=== PATIENT | female | born 1955 | race Caucasian/White ===

== ENCOUNTER 2021-03-14 04:00 | Outpatient (CLI) | payer OTHER, SELFPAY ==
[2021-03-14 08:46] LABS: Hemoglobin A1C 7.3 % (<5.7)
[2021-03-14 09:32] LABS: TSH 1.82 uIU/mL (0.36-3.74)
== END 2021-03-14 04:01 | disposition home or self-care (01) ==
DX: E11.9 Type 2 diabetes mellitus without complications (principal); L65.9 Nonscarring hair loss, unspecified
CPT/HCPCS: 36415; 83036; 84443

== ENCOUNTER → 2022-05-21 02:36 | Outpatient (CLI) | payer MEDICARE, SELFPAY ==
--- NOTE | 2022-05-21 07:45 | DI.MAMMO_ITS ---
Exam(s) MAMMO SCREENING EXAM: MAMMO SCREENING CLINICAL HISTORY: screening,Z12.39 TECHNIQUE: Bilateral full field digital CC and MLO mammographic images were obtained with 3D tomosyn thesis and utilizing computer aided detection (CAD). COMPARISON: Available for comparison. FINDINGS: Masses/Architectural Distortion: There is an asymmetry in the upper right left breast on the MLO view which appears slightly more prominent compared to the prior examination. Microcalcifications: No suspicious pleomorphic-type are seen. Skin Thickening/Nipple Retraction: None. IMPRESSION: 1. Area of asymmetry in the upper left breast on the MLO view. 2. This area should be further evaluated with a spot compression view. Ultrasound may be indicated at that time. BI-RADS Category 0 - Assessment Incomplete: Need additional imaging evaluation Breast Density - Category B - Scattered areas of fibroglandular density Breast density category C or D implies that the patient has dense breast tissue. Dense breast tissue is very common and is not abnormal but dense breast tissue can make it harder to find cancer on a ma mmogram. Also, dense breast tissue may increase their breast cancer risk. This information about the result of the mammogram report was provided to the patient to raise their awareness. Use this report when you speak with the patient about their risks for breast cancer, which includes their family hist ory. At that time, you may recommend for more screening tests (Ultrasound or MRI) as they might be us eful based on their risk. A negative radiographic report should not delay biopsy if a dominant or clinically suspicious mass is present. Up to ten percent of cancers are not identified on mammography. A negative report may reinforce clinical impression. Adenosis and dense breasts may obscure an underlying neoplasm. False positive reports average 6 to 10%. Patient will receive a letter notifying them of these results.
== END ==
PROVIDERS: PCP Student in an Organized Health Care Education/Training Program; Visit Provider Student in an Organized Health Care Education/Training Program
DX: Z12.31 Encounter for screening mammogram for malignant neoplasm of breast (principal); R92.8 Other abnormal and inconclusive findings on diagnostic imaging of breast
CPT/HCPCS: 77063; 77067

== ENCOUNTER → 2022-06-05 02:05 | Outpatient (CLI) | payer MEDICARE, SELFPAY ==
--- NOTE | 2022-06-05 | DI.MAMMO_ITS ---
Exam(s) MG MAMMO SCREEN CALL BACK UNI US BREAST LT COMPLETE EXAM: MG MAMMO SCREEN CALL BACK UNI -LEFT AND COMPLETE LEFT BREAST ULTRASOUND CLINICAL HISTORY: F/U MAMMO, ASYMMETRY LT BREAST. TECHNIQUE: Unilateral spot mammographic images obtained with 3D tomosynthesisand utilizing computer aided detection (CAD). . Complete LEFT breast Ultrasound was also performed, including all 4 quadrants, the retroareolar regio n, and the ipsilateral axilla. COMPARISON: Prior mammograms were reviewed. This additional imaging was performed due to findings described on the recent screening mammogram of 05/21/2022. FINDINGS: DIAGNOSTIC MAMMOGRAM: Additional mammographic views performed todayrender this area less concerning and similar in appearan ce to prior mammograms.. COMPLETE LEFT BREAST ULTRASOUND: Ultrasound performed today reveals no significant findings in all 4 quadrants.. Retroareolar region is also negative Scanning of the ipsilateral axilla reveals no significant adenopathy. IMPRESSION: 1. No radiographic evidence of malignancy in the left breast. 2. Negative complete left breast ultrasound Appropriate follow-up is to keep this patient on her yearly mammogram schedule, earlier imaging if a self detected breast change is noted.. The patient was informed of these findings and recommendations prior to leaving the department today. BI-RADS Category 2 - Benign Findings Breast Density - Category B - Scattered areas of fibroglandular density Breast density Category C or D implies that the patient has dense breast tissue. Dense breast tissue can make it harder to find cancer on a mammogram. Dense breast tissue is also associated with an incr eased risk of breast cancer. This information about the result of the mammogram report was provided to the patient to raise their awareness. Use this report when you speak with the patient about their risks for breast cancer, which includes their family history. At that time, you may recommend additional screening tests (Ultrasoun d or MRI) as these tests may add significant information. A negative radiographic report should not delay biopsy if a dominant or clinically suspicious mass is present. Up to ten percent of cancers are not identified on mammography. A negative report may reinforce clinical impression. Adenosis and dense breasts may obscure an underlying neoplasm. False positive reports average 6 to 10%. Patient will receive a letter notifying them of these results.
== END ==
PROVIDERS: PCP Family Medicine; Visit Provider Student in an Organized Health Care Education/Training Program
DX: R92.8 Other abnormal and inconclusive findings on diagnostic imaging of breast (principal); Z12.31 Encounter for screening mammogram for malignant neoplasm of breast
CPT/HCPCS: 76642; 77063; 77067

== ENCOUNTER 2022-08-10 01:34 | Outpatient (CLI) | payer MEDICARE, SELFPAY ==
[2022-08-10 08:23] LABS: HCT 39.6 % (36.0-46.0); HGB 12.4 g/dL (11.2-15.7); MCH 27.2 pg (27.0-33.0); MCHC 31.3 % (32.0-36.0); MCV 87 fL (80-95); MPV 9.5 fL (8.0-11.0); Platelet Count 400 10^3/uL (130-400); RBC 4.56 10^6/uL (3.93-5.22); RDW 12.4 % (11.7-14.6); RDW-SD 39.6 fL; WBC 15.22 10^3/uL (4.4-10.8)
[2022-08-10 08:43] LABS: Hemoglobin A1C 6.9 % (<5.7)
[2022-08-10 09:40] LABS: ALT 25 U/L (14-59); AST 14 U/L (15-37); Albumin 3.9 g/dL (3.4-5.0); Alkaline Phosphatase 77 U/L (46-116); Anion Gap 8.5 mmol/L (3-11); BUN 10 mg/dL (7-18); Bilirubin, Total 0.3 mg/dL (0.2-1.0); CO2 29.5 mmol/L (21.0-32.0); CREATININE 0.8 mg/dL (0.55-1.02); Calcium 11.3 mg/dL (8.5-10.1); Chloride 101 mmol/L (98-107); Estimated GFR 79.71 (mL/min/1.73m2); Glucose 119 mg/dL (74-106); Potassium 4.2 mmol/L (3.5-5.1); Sodium 139 mmol/L (136-145); TSH (W/Ref FT4) 1.99 uIU/mL (0.36-3.74); Total Protein 7.7 g/dL (6.4-8.2)
== END 2022-08-10 01:35 | disposition home or self-care (01) ==
PROVIDERS: PCP Family Medicine; Visit Provider Family Medicine
DX: E11.9 Type 2 diabetes mellitus without complications (principal); R53.83 Other fatigue
CPT/HCPCS: 36415; 80053; 85027; 83036; 84443

== ENCOUNTER 2022-08-29 09:45 | Outpatient (CLI) | payer MEDICARE, SELFPAY ==
--- NOTE | 2022-08-29 | DI.RAD_ITS ---
Exam(s) XR CHEST 2V PA LATERAL EXAM: XR CHEST 2V PA LATERAL CLINICAL HISTORY: WHEEZING R06.02 COUGH R05.8 TECHNIQUE: 2D digital imaging was performed of the chest. Two images were obtained. PA and lateral views were obtained. COMPARISON: No exams were available for comparison FINDINGS: MEDIASTINUM: Normal. HEART: Normal. PULMONARY VASCULATURE: Normal. LUNGS: Clear. PLEURAL SPACE: No pleural effusion or pneumothorax. BONE:Within normal limits for the patient's age. OTHER FINDINGS:Normal. IMPRESSION: No acute pulmonary findings. DATA REPOSITORY: RADIATION DOSE DELIVERED:
== END 2022-08-29 10:05 ==
LOC: DI 09:47
PROVIDERS: PCP Family Medicine; Visit Provider Family Medicine
DX: R06.2 Wheezing (principal); R05.8 Other specified cough
CPT/HCPCS: 71046

== ENCOUNTER 2022-08-29 13:06 | Outpatient (REF) | payer MEDICARE, SELFPAY | END 2022-08-29 13:07 | disposition home or self-care (01) | LOC: NCHCN 13:06 | PROVIDERS: PCP Family Medicine; Visit Provider Family Medicine | DX: R05.8 Other specified cough (principal); R06.2 Wheezing; J06.9 Acute upper respiratory infection, unspecified | CPT/HCPCS: 87070; 87205 ==

== ENCOUNTER 2022-10-15 04:00 | Outpatient (CLI) | payer MEDICARE, SELFPAY ==
[2022-10-15] MEDS: Albuterol HFA 18 GM 200 PUFF INH IH (14:55)
[2022-10-15] MEDS: Inhaler, Assist Device 1 EACH MC (14:55)
--- NOTE | 2022-10-16 11:00 | W.PFT ---
Date of service: 10/15/22 Time of Service: 13:12 Pulmonary Function Test Result Indications: Coughing Interpretation Spirometry: There is no airflow limitation. There is no significant bronchodilator response. Lung Volumes: Normal lung volumes Diffusion Capacity: Normal diffusion Airway Pressure: Normal airways resistance Impression Normal pulmonary function testing. Clinical Correlation therefore is recommended.
== END 2022-10-15 04:01 | disposition home or self-care (01) ==
LOC: RT 04:01
PROVIDERS: PCP Family Medicine; Visit Provider Family Medicine
DX: R05.8 Other specified cough (principal)
CPT/HCPCS: 94060; 94726; 94729

== ENCOUNTER 2022-11-01 02:15 | Outpatient (CLI) | payer MEDICARE, SELFPAY ==
--- NOTE | 2022-11-01 10:00 | DI.DEXA_ITS ---
Exam(s) XR DEXA BONE DENSITY W/WO NEO EXAM: XR DEXA BONE DENSITY W/WO NEO CLINICAL HISTORY: ASYMPTOMATIC POSTMENOPAUSAL STATUS, Z78.0 TECHNIQUE: COMPARISON: No exams were available for comparison FINDINGS: Lateral Spine Image: Unremarkable. No compression deformities identified. Left hip: Total T-Score: -1.9. Total Z-Score: -0.5 T- and Z-scores: The findings are consistent with osteopenia. There is osteoporosis in the femoral n juice with a T-score of -2.5. Lumbar Spine: Total T-Score: -0.4. Total Z-Score: 1.6 T- and Z-scores: Within normal limits. There is osteopenia in the lumbar spine. No evidence of osteo porosis. IMPRESSION: Osteoporosis in the left femoral neck.
== END 2022-11-01 02:35 ==
LOC: DI 02:15
PROVIDERS: PCP Family Medicine; Visit Provider Family Medicine
DX: Z78.0 Asymptomatic menopausal state (principal); M81.0 Age-related osteoporosis without current pathological fracture
CPT/HCPCS: 77080

== ENCOUNTER 2022-11-22 14:09 | Outpatient (REF) | payer MEDICARE, SELFPAY ==
[2022-11-22 21:38] LABS: COMMENT (LAB VIEW ONLY) 16.12 mg/dL; Microalb ug/mg Crea 14.3 ug/mg Cr
== END 2022-11-22 14:10 | disposition home or self-care (01) ==
LOC: NCHCN 14:09
PROVIDERS: PCP Family Medicine; Visit Provider Family Medicine
DX: E11.9 Type 2 diabetes mellitus without complications (principal)
CPT/HCPCS: 82043; 82570

== ENCOUNTER 2023-07-08 18:33 | Outpatient (REF) | payer MEDICARE, SELFPAY ==
[2023-07-08 14:55] LABS: HCT 37.8 % (36.0-46.0); HGB 11.4 g/dL (11.2-15.7); MCH 23.3 pg (27.0-33.0); MCHC 30.2 % (32.0-36.0); MCV 77 fL (80-95); MPV 9.9 fL (8.0-11.0); Platelet Count 415 10^3/uL (130-400); RDW 18.3 % (11.7-14.6); RDW-SD 51.4 fL
[2023-07-08 15:37] LABS: ALT 31 U/L (14-59); AST 18 U/L (15-37); Alkaline Phosphatase 55 U/L (46-116); Anion Gap 12.1 mmol/L (3-11); BUN 11 mg/dL (7-18); Bilirubin, Total 0.4 mg/dL (0.2-1.0); CO2 24.9 mmol/L (21.0-32.0); CREATININE 0.7 mg/dL (0.55-1.02); Calcium 10.7 mg/dL (8.5-10.1); Chloride 100 mmol/L (98-107); Estimated GFR 92.98 (mL/min/1.73m2); Glucose 149 mg/dL (74-106); Potassium 4.6 mmol/L (3.5-5.1); Sodium 137 mmol/L (136-145); Total Protein 7.4 g/dL (6.4-8.2)
[2023-07-08 15:40] LABS: Hemoglobin A1C 6.8 % (<5.7)
== END 2023-07-08 18:34 | disposition home or self-care (01) ==
LOC: NCHCN 18:33
PROVIDERS: PCP Family Medicine; Visit Provider Nurse Practitioner Family
DX: E78.5 Hyperlipidemia, unspecified (principal); E11.9 Type 2 diabetes mellitus without complications
CPT/HCPCS: 80053; 85027; 83036

== ENCOUNTER 2023-07-16 15:07 | Outpatient (REF) | payer MEDICARE, SELFPAY ==
[2023-07-16 21:27] LABS: Abs Immature Grans 0.06 10^3/uL (0.0-0.06); Absolute Basophil Count 0.09 10^3/uL (0.0-0.2); Absolute Eosinophil Count 0.21 10^3/uL (0.0-0.7); Absolute Monocyte Count 1.26 10^3/uL (0.1-0.8); Basophils % 0.6; Eosinophils % 1.4; HCT 37.5 % (36.0-46.0); HGB 11.5 g/dL (11.2-15.7); Immature Grans % 0.4; Lymphocytes % 18.5; MCH 23.9 pg (27.0-33.0); MCHC 30.7 % (32.0-36.0); MCV 78 fL (80-95); MPV 10.3 fL (8.0-11.0); Monocytes % 8.3; Neutrophils % 70.8; Platelet Count 412 10^3/uL (130-400); RBC 4.82 10^6/uL (3.93-5.22); RDW 17.5 % (11.7-14.6); RDW-SD 49.7 fL; WBC 15.17 10^3/uL (4.4-10.8)
[2023-07-16 21:28] LABS: Absolute Lymphocyte Count 2.81 10^3/uL (1.2-3.4); Absolute Neutrophil Count 10.74 10^3/uL (1.2-6.7)
[2023-07-17 13:53] LABS: Iron 27 ug/dL (50-170); Total Iron Binding Capacity 418 ug/dL (250-450); Transferrin Sat 6 % (15-50)
[2023-07-23 10:12] LABS: Folate 13.4 ng/mL (See Note)
== END 2023-07-16 15:08 | disposition home or self-care (01) ==
LOC: NCHCN 15:07
PROVIDERS: PCP Family Medicine; Visit Provider Family Medicine
DX: R53.83 Other fatigue (principal)
CPT/HCPCS: 82746; 83540; 83550; 85025

== ENCOUNTER 2023-08-12 14:13 | Outpatient (REF) | payer MEDICARE, SELFPAY ==
[2023-08-12 14:52] LABS: Abs Immature Grans 0.07 10^3/uL (0.0-0.06); Absolute Basophil Count 0.06 10^3/uL (0.0-0.2); Absolute Eosinophil Count 0.16 10^3/uL (0.0-0.7); Absolute Lymphocyte Count 2.19 10^3/uL (1.2-3.4); Absolute Monocyte Count 0.68 10^3/uL (0.1-0.8); Absolute Neutrophil Count 7.21 10^3/uL (1.2-6.7); Basophils % 0.6; Eosinophils % 1.5; HGB 11.7 g/dL (11.2-15.7); Immature Grans % 0.7; Lymphocytes % 21.1; MCH 23.9 pg (27.0-33.0); MCHC 30.8 % (32.0-36.0); MCV 78 fL (80-95); MPV 9.5 fL (8.0-11.0); Monocytes % 6.6; Neutrophils % 69.5; Platelet Count 427 10^3/uL (130-400); RDW 17.1 % (11.7-14.6); RDW-SD 48.2 fL; WBC 10.37 10^3/uL (4.4-10.8)
[2023-08-12 15:20] LABS: Iron 32 ug/dL (50-170); Total Iron Binding Capacity 374 ug/dL (250-450); Transferrin Sat 9 % (15-50)
[2023-08-12 15:24] LABS: Folate 17.8 ng/mL (8.6-20.0)
== END 2023-08-12 14:14 | disposition home or self-care (01) ==
LOC: NCHCN 14:13
PROVIDERS: PCP Family Medicine; Visit Provider Family Medicine
DX: D50.9 Iron deficiency anemia, unspecified (principal)
CPT/HCPCS: 82746; 83540; 83550; 85025

== ENCOUNTER → 2023-09-05 04:32 | Outpatient (CLI) | payer MEDICARE, SELFPAY ==
--- NOTE | 2023-09-05 | DI.CT_ITS ---
Exam(s) CT CHEST WO EXAM: CT CHEST WO CLINICAL HISTORY: ABNL BREATH SOUNDS,R09.89,RHONCHI RLL,COUGH,FEVER,PERSIST LEUKOCYTOSIS. TECHNIQUE: Imaging protocol: Axial computed tomography images were obtained and coronal and sagittal reformatted images were created and reviewed. COMPARISON: CR XR CHEST 2V PA LATERAL from 08/29/2022 FINDINGS: Tracheobronchial tree: Patent where visualized. No bronchiectasis or bronchial wall thickening. Pulmonary parenchyma: No consolidation or dominant measurable mass. No architectural distortion. Ther e is a 3.6 mm nodule in the periphery of the left lower lobe (series 3, image 363). Mediastinum and Krystina: No dominant adenopathy or fluid collection. The esophagus is unremarkable. Thyroid gland: Unremarkable. Pleura: No effusion or pneumothorax. Heart: The heart is not dilated. Coronary artery calcifications are present. No pericardial effusion . Aorta: Thoracic aorta non-dilated. Atherosclerotic calcification is present. Upper abdomen: Cholelithiasis. No biliary ductal dilatation. There is a cyst on the left kidney. It is incompletely imaged. Renal ultrasound may be obtained for further evaluation. It measures at least 3.9 x 5.3 cm. Lymph nodes: Within normal limits. Soft tissues: Unremarkable. Bones:Within normal limits for the patient's age. IMPRESSION: 1. No focal infiltrates. 2. 3.6 cm left lower lobe pulmonary nodule. Single solid noncalcified nodules. ???Solid nodules smaller than 6 mm (those 5 mm or smaller) do not require routine follow-up in patients at low risk (grade 1C; strong recommendation, low- or very-low- quality evidence). (Aguilar et al., 2017) Solid nodules smaller than 6 mm do not require routine follow-up in all patients with high clinical r isk; however, some nodules smaller than 6 mm with suspicious morphology, upper lobe location, or both may warrant follow-up at 12 months (grade 2A; weak recommendation, high-quality evidence). (Aguilar et al., 2017) 3. Cholelithiasis. Unexpected findings RADIATION DOSE DELIVERED: Total DLP Total DLP DATA REPOSITORY: All CT scans at this facility are submitted to the National Radiology Data Registry (NRDR) Dose Index Registry (DIR) with the [employer] ([employer]). RADIATION OPTIMIZATION: All CT scans at this facility use at least one of these dose optimization te chniques: automated exposure control; mA and/or kV adjustment per patient size (includes targeted exa ms where dose is matched to clinical indication); or iterative reconstruction.
== END ==
PROVIDERS: PCP Family Medicine; Visit Provider Family Medicine
DX: R05.8 Other specified cough (principal); R09.89 Other specified symptoms and signs involving the circulatory and respiratory systems; R06.89 Other abnormalities of breathing; R50.9 Fever, unspecified; R91.1 Solitary pulmonary nodule
CPT/HCPCS: 71250

== ENCOUNTER → 2023-09-17 03:56 | Outpatient (CLI) | payer MEDICARE, SELFPAY ==
--- NOTE | 2023-09-17 12:20 | DI.US_ITS ---
Exam(s) US RENAL EXAM: US RENAL CLINICAL HISTORY: N28.1 Cyst of kidney, acquired, f/u cyst partially seen on CT. TECHNIQUE: Lewis scale, color and spectral Doppler were used. COMPARISON: CT CT CHEST WO from 09/05/2023 FINDINGS: Renal size in cm: Right: 10.1 left: 11.3 Echogenicity: Normal Hydronephrosis: No Cyst or mass: 6.3 x 2.8 x 6.5 centimeters simple cyst emanating from the upper pole of the left kidne y. Nephrolithiasis: No Bladder:Normal. Prevoid vol: 196 cc Postvoid vol: Not performed IMPRESSION: 6.5 centimeter simple cyst of the left kidney. No follow-up recommended. DATA REPOSITORY:
== END ==
PROVIDERS: PCP Family Medicine; Visit Provider Family Medicine
DX: N28.1 Cyst of kidney, acquired (principal)
CPT/HCPCS: 76770

== ENCOUNTER 2023-10-22 15:18 | Outpatient (REF) | payer MEDICARE, SELFPAY ==
[2023-10-22 15:03] LABS: Abs Immature Grans 0.04 10^3/uL (0.0-0.06); Absolute Basophil Count 0.04 10^3/uL (0.0-0.2); Absolute Eosinophil Count 0.15 10^3/uL (0.0-0.7); Absolute Lymphocyte Count 1.96 10^3/uL (1.2-3.4); Absolute Monocyte Count 0.72 10^3/uL (0.1-0.8); Absolute Neutrophil Count 6.06 10^3/uL (1.2-6.7); Basophils % 0.4 %; Eosinophils % 1.7 %; HCT 39.4 % (36.0-46.0); HGB 12.6 g/dL (11.2-15.7); Immature Grans % 0.4 %; Lymphocytes % 21.9 %; MCH 27.3 pg (27.0-33.0); MCV 86 fL (80-95); MPV 10.1 fL (8.0-11.0); Neutrophils % 67.6 %; Platelet Count 337 10^3/uL (130-400); RBC 4.61 10^6/uL (3.93-5.22); RDW 17.1 % (11.7-14.6); RDW-SD 52.9 fL; WBC 8.97 10^3/uL (4.4-10.8)
[2023-10-22 15:15] LABS: Iron 72 ug/dL (50-170); Total Iron Binding Capacity 318 ug/dL (250-450); Transferrin Sat 23 % (15-50)
[2023-10-22 15:28] LABS: ALT 41 U/L (14-59); AST 22 U/L (15-37); Alkaline Phosphatase 55 U/L (46-116); Anion Gap 9.8 mmol/L (3-11); BUN 14 mg/dL (7-18); Bilirubin, Total 0.4 mg/dL (0.2-1.0); CO2 28.2 mmol/L (21.0-32.0); CREATININE 0.5 mg/dL (0.55-1.02); Calcium 10.2 mg/dL (8.5-10.1); Chloride 97 mmol/L (98-107); Estimated GFR 100.84 (mL/min/1.73m2); Ferritin 17 ng/mL (8-252); Glucose 109 mg/dL (74-106); Potassium 4.8 mmol/L (3.5-5.1); Sodium 135 mmol/L (136-145); Total Protein 6.9 g/dL (6.4-8.2)
[2023-10-22 15:38] LABS: Vitamin D 25 Total 50.5 ng/mL (30-100)
[2023-10-22 15:43] LABS: Hemoglobin A1C 6.8 % (<5.7)
== END 2023-10-22 15:19 | disposition home or self-care (01) ==
LOC: NCHCN 15:18
PROVIDERS: PCP Family Medicine; Visit Provider Family Medicine
DX: E11.9 Type 2 diabetes mellitus without complications (principal); E83.52 Hypercalcemia
CPT/HCPCS: 80053; 82306; 82728; 83036; 83540; 83550; 85025

== ENCOUNTER → 2023-10-28 09:49 | Outpatient (BNVA) | payer MEDICARE, SELFPAY | PROVIDERS: PCP Family Medicine; Referring Provider Family Medicine; Visit Provider Student in an Organized Health Care Education/Training Program | DX: M72.0 Palmar fascial fibromatosis [Dupuytren] (principal); M65.332 Trigger finger, left middle finger | CPT/HCPCS: 99213 ==

== ENCOUNTER → 2024-01-06 01:24 | Outpatient (CLI) | payer MEDICARE, SELFPAY ==
--- NOTE | 2024-01-06 07:15 | DI.RAD_ITS ---
Exam(s) XR FOOT RT COMPLETE EXAM: XR FOOT RT COMPLETE CLINICAL HISTORY: Right 3rd toe pain,PAIN RT FOOT, M79.674,M79.671. TECHNIQUE: 2D digital imaging was performed. Three views. COMPARISON: No exams were available for comparison FINDINGS: BONES: No acute fracture is present. No bony destructive lesion is seen. Small enthesophyte at Achil les insertion on calcaneus. JOINTS: No dislocation present. No significant joint space narrowing. SOFT TISSUE: Normal. IMPRESSION: No acute abnormality. DATA REPOSITORY: RADIATION DOSE DELIVERED:
== END ==
PROVIDERS: PCP Family Medicine; Visit Provider Podiatrist
DX: M79.674 Pain in right toe(s) (principal); M79.671 Pain in right foot; M76.61 Achilles tendinitis, right leg
CPT/HCPCS: 73630

== ENCOUNTER 2024-02-20 16:38 | Outpatient (REF) | payer MEDICARE, SELFPAY ==
[2024-02-20 21:46] LABS: Iron 69 ug/dL (50-170); Total Iron Binding Capacity 329 ug/dL (250-450); Transferrin Sat 21 % (15-50)
[2024-02-20 21:47] LABS: Abs Immature Grans 0.03 10^3/uL (0.0-0.06); Absolute Basophil Count 0.08 10^3/uL (0.0-0.2); Absolute Monocyte Count 0.76 10^3/uL (0.1-0.8); Absolute Neutrophil Count 6.76 10^3/uL (1.2-6.7); Basophils % 0.8 %; HCT 44.6 % (36.0-46.0); HGB 14.4 g/dL (11.2-15.7); Immature Grans % 0.3 %; Lymphocytes % 20.1 %; MCH 29.4 pg (27.0-33.0); MCHC 32.3 % (32.0-36.0); MCV 91 fL (80-95); MPV 9.9 fL (8.0-11.0); Monocytes % 7.7 %; Neutrophils % 68.1 %; Platelet Count 360 10^3/uL (130-400); RDW 12.6 % (11.7-14.6); RDW-SD 42.1 fL; WBC 9.93 10^3/uL (4.4-10.8)
[2024-02-20 22:00] LABS: Anion Gap 7.1 mmol/L (3-11); BUN 12 mg/dL (7-18); CO2 28.9 mmol/L (21.0-32.0); CREATININE 0.6 mg/dL (0.55-1.02); Calcium 10.5 mg/dL (8.5-10.1); Chloride 101 mmol/L (98-107); Ferritin 63 ng/mL (8-252); Glucose 92 mg/dL (74-106); Potassium 5.2 mmol/L (3.5-5.1); Sodium 137 mmol/L (136-145)
[2024-02-20 22:34] LABS: Hemoglobin A1C 6.1 % (<5.7)
== END 2024-02-20 16:39 | disposition home or self-care (01) ==
LOC: NCHCN 16:38
PROVIDERS: PCP Family Medicine; Visit Provider Family Medicine
DX: E61.1 Iron deficiency (principal)
CPT/HCPCS: 80048; 82728; 83036; 83540; 83550; 85025

== ENCOUNTER 2024-03-12 15:39 | Outpatient (REF) | payer MEDICARE, SELFPAY ==
[2024-03-12 15:49] LABS: ALT 38 U/L (14-59); AST 22 U/L (15-37); Albumin 3.8 g/dL (3.4-5.0); Alkaline Phosphatase 79 U/L (46-116); BUN 14 mg/dL (7-18); Bilirubin, Total 0.47 mg/dL (0.2-1.0); CREATININE 0.7 mg/dL (0.55-1.02); Chloride 100 mmol/L (98-107); Estimated GFR 92.98 (mL/min/1.73m2); Glucose 211 mg/dL (74-106); Potassium 4.4 mmol/L (3.5-5.1); Sodium 135 mmol/L (136-145); Total Protein 6.7 g/dL (6.4-8.2); Vitamin D 25 Total 42.4 ng/mL (30-100)
[2024-03-12 16:12] LABS: PHOSPHORUS 3.7 mg/dL (2.6-4.7)
[2024-03-12 22:31] LABS: Parathyroid Hormone,Intact 51 pg/mL (19-88)
== END 2024-03-12 15:40 | disposition home or self-care (01) ==
LOC: NCHCN 15:39
PROVIDERS: PCP Family Medicine; Visit Provider Family Medicine
DX: E83.52 Hypercalcemia (principal)
CPT/HCPCS: 80053; 82306; 82330; 83970; 84100

== ENCOUNTER 2024-06-16 17:45 | Outpatient (REF) | payer MEDICARE, SELFPAY ==
[2024-06-16 15:48] LABS: HCT 43.8 % (36.0-46.0); HGB 14.3 g/dL (11.2-15.7); MCH 29.4 pg (27.0-33.0); MCHC 32.6 % (32.0-36.0); MCV 90 fL (80-95); MPV 9.9 fL (8.0-11.0); Platelet Count 340 10^3/uL (130-400); RBC 4.87 10^6/uL (3.93-5.22); RDW 12.4 % (11.7-14.6); RDW-SD 40.6 fL; WBC 8.67 10^3/uL (4.4-10.8)
[2024-06-16 16:10] LABS: Hemoglobin A1C 6.5 % (<5.7)
[2024-06-16 16:12] LABS: Anion Gap 6.3 mmol/L (3-11); BUN 13 mg/dL (7-18); CO2 31.7 mmol/L (21.0-32.0); CREATININE 1.2 mg/dL (0.55-1.02); Calcium 10.9 mg/dL (8.5-10.1); Chloride 102 mmol/L (98-107); Estimated GFR 48.39 (mL/min/1.73m2); Ferritin 54 ng/mL (8-252); Glucose 118 mg/dL (74-106); Potassium 4.1 mmol/L (3.5-5.1); Sodium 140 mmol/L (136-145)
[2024-06-16 16:34] LABS: Iron 115 ug/dL (50-170); Total Iron Binding Capacity 320 ug/dL (250-450); Transferrin Sat 36 % (15-50)
== END 2024-06-16 17:46 | disposition home or self-care (01) ==
LOC: NCHCN 17:45
PROVIDERS: PCP Family Medicine; Visit Provider Family Medicine
DX: E11.9 Type 2 diabetes mellitus without complications
CPT/HCPCS: 80048; 85027; 82728; 83036; 83540; 83550

== ENCOUNTER 2024-06-19 01:04 | Outpatient (CLI) | payer MEDICARE, SELFPAY ==
[2024-06-19 16:27] LABS: TSH (W/Ref FT4) 0.86 uIU/mL (0.36-3.74); Vitamin D 25 Total 38.5 ng/mL (30-100)
[2024-06-19 22:07] LABS: Ionized Calcium 1.29 mmol/L (1.14-1.35)
[2024-06-22 13:43] LABS: Albumin 60.9 % (55.8-66.1); Albumin g/dL 4.4 g/dL (3.6-5.2); Total Protein 7.3 g/dL (6.3-8.2)
[2024-06-23 14:56] LABS: PTH-Related Peptide <0.5 pmol/L (< or = 4.2)
== END 2024-06-19 01:05 | disposition home or self-care (01) ==
PROVIDERS: PCP Family Medicine; Visit Provider Family Medicine
DX: E83.52 Hypercalcemia (principal)
CPT/HCPCS: 36415; 82306; 82330; 82397; 84165; 84443

== ENCOUNTER 2024-09-18 11:42 | Outpatient (REF) | payer MEDICARE, SELFPAY ==
[2024-09-18 15:00] LABS: Anion Gap 7.5 mmol/L (3-11); BUN 13 mg/dL (7-18); CO2 27.5 mmol/L (21.0-32.0); CREATININE 0.8 mg/dL (0.55-1.02); Calcium 10.4 mg/dL (8.5-10.1); Calculated LDL 60 mg/dL (<100); Chloride 104 mmol/L (98-107); Cholesterol 141 mg/dL (<200); Estimated GFR 78.72 (mL/min/1.73m2); Glucose 247 mg/dL (74-106); HDL Cholesterol 57 mg/dL (>or=50); Potassium 4.3 mmol/L (3.5-5.1); Sodium 139 mmol/L (136-145); Triglyceride 120 mg/dL (<150)
== END 2024-09-18 11:43 | disposition home or self-care (01) ==
LOC: NCHCN 11:42
PROVIDERS: PCP Family Medicine; Visit Provider Family Medicine
DX: E78.5 Hyperlipidemia, unspecified (principal); E83.52 Hypercalcemia
CPT/HCPCS: 80048; 80061

== ENCOUNTER 2024-10-23 00:04 | Outpatient (CLI) | payer MEDICARE, SELFPAY ==
--- NOTE | 2024-10-23 12:39 | DI.MAMMO_ITS ---
Exam(s) MAMMO SCREENING EXAM: MAMMO SCREENING CLINICAL HISTORY: Screening, Z12.31. TECHNIQUE: Bilateral full field digital CC and MLO mammographic images were obtained with 3D tomosyn thesis and utilizing computer aided detection (CAD). COMPARISON: Prior mammograms were reviewed. FINDINGS: There has been no significant change in the appearance and distribution of the fibroglandular tissue. There are no new spiculated masses nor new malignant appearing microcalcification groups. There is no significant architectural distortion nor skin thickening-retraction. IMPRESSION: No radiographic evidence of malignancy. BI-RADS Category 1 - Negative Breast Density - Category B - There are scattered areas of fibroglandular density. Breast density Category C or D implies that the patient has dense breast tissue. Dense breast tissue can make it harder to find cancer on a mammogram. Dense breast tissue is also associated with an incr eased risk of breast cancer. This information about the result of the mammogram report was provided to the patient to raise their awareness. Use this report when you speak with the patient about their risks for breast cancer, which includes their family history. At that time, you may recommend additional screening tests (Ultrasoun d or MRI) as these tests may add significant information. A negative radiographic report should not delay biopsy if a dominant or clinically suspicious mass is present. Up to ten percent of cancers are not identified on mammography. A negative report may reinforce clinical impression. Adenosis and dense breasts may obscure an underlying neoplasm. False positive reports average 6 to 10%. Patient will receive a letter notifying them of these results.
== END 2024-10-23 00:24 ==
LOC: DI 00:04
PROVIDERS: PCP Family Medicine; Visit Provider Family Medicine
DX: Z12.31 Encounter for screening mammogram for malignant neoplasm of breast (principal); R92.323 Mammographic fibroglandular density, bilateral breasts
CPT/HCPCS: 77063; 77067

== ENCOUNTER 2024-12-31 01:15 | Outpatient (CLI) | payer MEDICARE, SELFPAY ==
--- NOTE | 2024-12-31 | DI.MRI_ITS ---
Exam(s) MR LOWER JOINT LT WO EXAM: MR LOWER JOINT LT WO CLINICAL HISTORY: PAIN LEFT ANKLE LEFT FOOT M25.572 CHRONIC PAIN G89.29 WORSENING PAIN TECHNIQUE: Multiplanar multisequence MRI was performed without intravenous contrast. COMPARISON: None. The exam is interpreted without prior plain films or specific clinical history. FINDINGS: BONES/JOINTS: No fracture or contusion pattern. There is marrow edema in the subchondral region of the anterior distal tibia. There are small subchondral cysts, consistent with the degenerative cysts. There is narrowing of the anterior tibiotalar joint. Shows mild spurring at the anterior distal tibia. There is spurring at the dorsal aspect of the talus. No suspicious bone lesions identified. The talar dome is smooth. The ankle mortise is maintained. No joint effusion is present. LIGAMENTS: The tibiofibular and calcaneofibular ligaments are intact. The talofibular ligaments are intact. The deltoid ligament is intact. The syndesmosis is unremarkable. Sinus tarsi is normal. MUSCULOTENDINOUS STRUCTURES: Achilles tendon: Unremarkable. Plantar fascia: Unremarkable. Anterior Extensor tendons: Unremarkable. Posterior Tibialis: Unremarkable. Flexor Digitorum longus: Unremarkable. Flexor Hallucis longus: Unremarkable. Peroneus longus: Unremarkable. Peroneus brevis:Unremarkable. SOFT TISSUES: Edema in the subcutaneous fat of the ankle. IMPRESSION: Degenerative changes of the anterior tibiotalar joint. No talar dome defects are present. DATA REPOSITORY:
== END 2024-12-31 01:35 ==
PROVIDERS: PCP Family Medicine; Visit Provider Family Medicine
DX: M25.572 Pain in left ankle and joints of left foot (principal); G89.29 Other chronic pain
CPT/HCPCS: 73721

== ENCOUNTER 2025-02-25 13:22 | Outpatient (REF) | payer MEDICARE, SELFPAY ==
[2025-02-25 15:18] LABS: HCT 44.8 % (36.0-46.0); HGB 14.8 g/dL (11.2-15.7); MCH 29.5 pg (27.0-33.0); MCHC 33.0 % (32.0-36.0); MCV 89 fL (80-95); MPV 9.9 fL (8.0-11.0); Platelet Count 312 10^3/uL (130-400); RBC 5.01 10^6/uL (3.93-5.22); RDW 12.1 % (11.7-14.6); RDW-SD 40.0 fL; WBC 9.89 10^3/uL (4.4-10.8)
[2025-02-25 15:36] LABS: Iron 97 ug/dL (50-170); Total Iron Binding Capacity 321 ug/dL (250-450); Transferrin Sat 30 % (15-50)
[2025-02-25 15:39] LABS: Hemoglobin A1C 6.9 % (<5.7)
[2025-02-25 16:10] LABS: Anion Gap 10.1 mmol/L (3-11); BUN 17 mg/dL (7-18); CO2 26.9 mmol/L (21.0-32.0); Calcium 10.6 mg/dL (8.5-10.1); Chloride 99 mmol/L (98-107); Estimated GFR 92.41 (mL/min/1.73m2); Ferritin 98 ng/mL (8-252); Glucose 167 mg/dL (74-106); Potassium 4.2 mmol/L (3.5-5.1); Sodium 136 mmol/L (136-145)
[2025-02-25 16:51] LABS: COMMENT (LAB VIEW ONLY) 17.20 mg/dL; Microalb ug/mg Crea 7.6 ug/mg Cr
== END 2025-02-25 13:23 | disposition home or self-care (01) ==
LOC: NCHCN 13:22
PROVIDERS: PCP Family Medicine; Visit Provider Family Medicine
DX: E11.9 Type 2 diabetes mellitus without complications (principal); E83.52 Hypercalcemia
CPT/HCPCS: 80048; 85027; 82043; 82570; 82728; 83036; 83540; 83550; 83970

== ENCOUNTER → 2025-05-21 10:57 | Outpatient (BNVA) | payer MEDICARE, SELFPAY | PROVIDERS: PCP Family Medicine; Referring Provider Family Medicine; Visit Provider Surgery | DX: K62.5 Hemorrhage of anus and rectum (principal) | CPT/HCPCS: 99214 ==